=== PATIENT | female | born 1950 | race African-American/Black ===

== ENCOUNTER 2018-12-27 11:25 | Inpatient (IN) ==
[2018-12-27] MEDS ORDERED: APRESOLINE IV ONE (12:02)
[2018-12-27 12:12] LABS: BASO# 0.01 X1000 (0.0-0.2); BASO% 0.3 % (0.0-0.8); EOS# 0.08 X1000 (0.0-0.7); EOS% 2.2 % (0.0-10.0); HEMOGLOBIN 13.2 g/dL (12.0-16.0); IMM GRAN# 0.01 X1000 (0.0-0.04); IMM GRAN% 0.3 % (0.0-0.5); LYMPH# 1.77 X1000 (1.2-3.4); LYMPH% 48.4 % (20.5-51.1); MCH 28.1 PG (27-31); MCHC 33.8 g/dL (33-37); MONO# 0.23 X1000 (0.11-0.59); MONO% 6.3 % (1.7-9.3); MPV 11.2 FL (7.4-10.4); NEUT# 1.56 X1000 (1.4-6.5); NEUT% 42.5 % (42.2-75.2); PLT 239 X1000 (130-400); RDW 13.3 % (11.5-14.5); WBC 3.66 X1000 (4.8-10.8)
[2018-12-27 12:46] LABS: BILIRUBIN URINE NEGATIVE (NEGATIVE); BLOOD URINE NEGATIVE (NEGATIVE); CLARITY CLEAR (CLEAR); COLOR YELLOW; GLUCOSE URINE NEGATIVE (NEGATIVE); KETONE URINE NEGATIVE (NEGATIVE); LEUKOCYTES URINE TRACE (NEGATIVE); NITRITE URINE POSITIVE (NEGATIVE); PROTEIN URINE 1+(30 mg/dL) mg/dL (NEGATIVE); SP GRAVITY URINE 1.015; UROBILINOGEN URINE NORMAL
[2018-12-27 12:50] LABS: URINE CAST NONE SEEN /LPF; URINE CRYSTAL NONE SEEN /HPF; URINE EPITHELIAL CELLS <10 /HPF (<10); URINE SOURCE CLEAN CATCH; URINE YEAST NONE SEEN /HPF
[2018-12-27 12:51] LABS: URINE BACTERIA 1+ /HFP; URINE RBC <10 /HPF (<10); URINE WBC <10 /HPF (<10)
--- NOTE | 2018-12-27 13:09 | Diag Imaging Result Doc PS360 ---
EXAM: CT HEAD W/O CONTRAST 12/27/2018 HISTORY: headache, possible CVA TECHNIQUE: This exam was performed using automated exposure control, adjustment of mA or kV according to patient size, and/or use of iterative reconstruction technique. COMMENT: There is no evidence of mass effect, bleed, or abnormal extra-axial fluid collection. Compared to 09/25/2017 the appearance the brain has not changed significantly. The visualized paranasal sinuses are clear. The calvarium is intact. IMPRESSION: No evidence of acute intracranial disease. Electronically signed by Toribio Cook 12/27/2018 1:06 PM
[2018-12-27] MEDS ORDERED: ZOFRAN IV ONE (13:17)
--- NOTE | 2018-12-27 13:31 | EKG Report ---
Test Performed on : 12/27/2018 1:27:40 PM Test Reason : htn Blood Pressure : / mmHG Vent. Rate : 057 BPM Atrial Rate : 057 BPM P-R Int : 148 ms QRS Dur : 084 ms QT Int : 416 ms P-R-T Axes : 041 -09 005 degrees QTc Int : 404 ms Sinus bradycardia. Voltage criteria for left ventricular hypertrophy Inferior infarct , age undetermined Abnormal ECG When compared with ECG of 26-JUL-2018 08:58, Inferior infarct is now present T wave inversion now evident in Inferior leads Unconfirmed Result
[2018-12-27 13:34] LABS: ALBUMIN 4.1 g/dL (3.5-5.0); CALCIUM 8.9 mg/dL (8.8-10.2); POTASSIUM 4.1 mmol/L (3.5-5.1); TOTAL BILIRUBIN 0.3 mg/dL (0.20-1.00); TOTAL PROTEIN 7.4 g/dL (6.3-8.3)
[2018-12-27] MEDS ORDERED: ROCEPHIN 1 GM in NS 50 ML IV ONE (14:07)
--- NOTE | 2018-12-27 14:30 | PROVIDER DOCUMENTATION ---
This chart was entered by Magdalena Ornelas Scribe, acting as scribe for Zachery Abel MD. HPI-Headache - General Chief Complaint: Headache Stated Complaint: headache Time Seen by Provider: 12/27/18 11:52 Allergies/Adverse Reactions: Patient Allergies Allergy/AdvReac Type Severity Reaction Status Date / Time No Known Allergies Allergy Verified 12/27/18 11:39 Home Medications: Home Medication List Medication Instructions Recorded Confirmed Last Taken Type Hydrochlorothiazide 25 mg PO DAILY #7 tablet 01/15/14 07/26/18 Unknown Rx Aspirin 1 cap PO HS 06/29/18 07/26/18 06/28/18 21:00 History Losartan [Cozaar] 100 mg PO HS 06/29/18 07/26/18 06/28/18 21:00 History Metformin [Glucophage] 500 mg PO BID 06/29/18 07/26/18 Unknown History Omeprazole 40 mg PO DAILY 06/29/18 07/26/18 Unknown History Clopidogrel [Plavix] 75 mg PO DAILY tablet 07/01/18 07/26/18 Unknown Rx Cholecalciferol (Vitamin D3) 1,000 unit PO ONCE 07/26/18 07/26/18 Unknown History [Vitamin D3] Sennosides/Docusate Sodium [Senna 1 each PO ONCE 07/26/18 07/26/18 Unknown His tory Laxative Tablet] Azithromycin [Zithromax] 250 mg PO DAILY #5 tab 07/28/18 Unknown Rx Topiramate [Trokendi Xr] 25 mg PO DAILY #30 cap.er.24h 07/28/18 Unknown Rx - History of Present Illness-Headache Nature of Presenting Problem: 68 yof presents to ED by EMS c/o sudden onset headache on right side, slurred speech, sweatiness, nausea, 'funny feeling' all over and 'thickness' in right jaw that started while at work today. Pt also reports weakness in left leg and right arm as well as pins and needles feeling in fingers, bilaterally, that c omes and goes. Pt has hx of TIA, HTN, hyperlipidemia and thyroid disease. Quality of Pain: reports: none Severity: reports: mild Onset/Duration: reports: abrupt, just prior to arrival Timing: reports: gone now Modifying Factors: improves with: nothing Review of Systems - Adult - REVIEW OF SYSTEMS - ADULT Constitutional: reports: see HPI, fatique. denies: chills, fever Eyes: reports: no symptoms reported Ears, Nose, Mouth & Throat: reports: no symptoms reported Cardiovascular: reports: no symptoms reported Respiratory: reports: no symptoms reported Gastrointestinal: reports: see HPI, nausea. denies: abdominal pain Genitourinary: reports: no symptoms reported Musculoskeletal: reports: no symptoms reported Integumentary: reports: no symptoms reported Neurological: reports: see HPI, headache/migraines, numbness, slurred speech. denies: syncope Psychiatric: reports: no symptoms reported Endocrine: reports: no symptoms reported Hematologic/Lymphatic: reports: no symptoms reported Allergic/Immunologic: reports: no symptoms reported All Other Systems: Reviewed and Negative Past History - Adult - PAST MEDICAL HISTORY-ADULT Review of Records: reports: Nursing Assessment Review, Medications Reviewed, Social history reviewed & non-contributory. Major Childhood Illnesses: reports: denies history Cardiovascular: reports: HTN, hyperlipidemia Respiratory: reports: denies history Gastrointestinal: reports: denies history Obstetrical/Gynecological: reports: denies history Genitourinary: reports: denies history Musculoskeletal: reports: denies history Neurological: reports: denies history Endocrine/Immune: reports: Diabetes, thyroid disorder Other Conditions: reports: denies history - PRIOR SURGERIES/PROCEDURES Surgical/Procedure History: reports: hysterectomy, other (thyroidectomy) - IMMUNIZATION STATUS Childhood Immunizations: See Nurse Assessment Flu Vaccine: See Nurse Assessment - FAMILY HISTORY Family History: reviewed, not pertinent - SOCIAL HISTORY Smoking: denies Physical Exam- Neurological - Physical Exam-Neuro Initial Vital Signs Reviewed: Yes General Appearance: appears well, alert, no apparent distress. negative: combative Eye Exam: bilateral eye: normal inspection, PERRL HENMT: moist mucous membranes, normal ENT inspection. negative: angioedema Head Injury: no evidence of injury. negative: active bleeding, Mandel's Sign, contusions Neck: non-tender, full range of motion, supple, normal inspection. negative: Brudzinski's sign, carotid bruit Respiratory: chest non-tender, lungs clear, normal breath sounds, no pleuratic chest pain, no respiratory distress, no accessory muscle use. negative: crackles, rales, rhonchi Cardiovascular: normal peripheral pulses, regular rate, rhythm, no edema, no gallop, no JVD, no murmur. negative: bradycardia, tachycardia Abdominal Exam: normal bowel sounds, non tender, soft, no organomegaly. negative: rigid, rebound, tenderness Lymphatic: no adenopathy. negative: striations Extremity: normal range of motion, normal inspection. 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 negative: facial droop, facial weakness Coordination/Gait: normal finger to nose, normal gait Motor/Sensory: no motor deficit Neurologic: train crew member II-XII nml as tested, grossly normal, no motor/sensory deficits. negative: facial droop, focal weakness Integumentary: normal color, normal turgor, warm/dry. negative: diaphoresis, jaundice Psych/Mental Status: normal mood/affect, normal thought content, normal thought process, oriented x 3. negative: anxious Progress - PLAN OF CARE/RESULTS Progress/Plan/Lab Results: Vital Signs - 8 hr 12/27/18 11:29 12/27/18 13:15 Temperature 97.7 F Pulse Rate 59 L 57 L Respiratory Rate 13 22 Blood Pressure 220/103 180/76 O2 Sat by Pulse Oximetry 99 100 Laboratory Results - last 24 hr 12/27/18 12/27/18 12/27/18 11:40 11:40 12:15 WBC 3.66 L RBC 4.70 Hgb 13.2 Hct 39.0 MCV 83.0 MCH 28.1 MCHC 33.8 RDW Std Deviation 13.3 Plt Count 239 MPV 11.2 H Immature Gran % (Auto) 0.3 Neut % (Auto) 42.5 Lymph % (Auto) 48.4 Bond % (Auto) 6.3 Eos % (Auto) 2.2 Baso % (Auto) 0.3 Immature Gran # (Auto) 0.01 Neut # (Auto) 1.56 Lymph # (Auto) 1.77 Bond # (Auto) 0.23 Eos # (Auto) 0.08 Baso # (Auto) 0.01 Sodium Potassium Chloride Carbon Dioxide Anion Gap BUN Creatinine Estimated GFR/1.73 m2 BUN/Creatinine Ratio Glucose Calculated Osmolality Calcium Total Bilirubin AST ALT Alkaline Phosphatase Troponin T < 0.010 [id number]-[id number] Pept Total Protein Albumin Globulin Albumin/Globulin Ratio Urine Source CLEAN CATCH Urine Color YELLOW Urine Clarity CLEAR Urine pH 6.0 Ur Specific [place] 1.015 Urine Protein 1+(30 mg/dL) A Urine Ketones NEGATIVE Urine Blood NEGATIVE Urine Nitrite POSITIVE A Urine Bilirubin NEGATIVE Urine Urobilinogen NORMAL Urine Microscopic RBC <10 Urine WBC TRACE A Urine Microscopic WBC <10 Ur Epithelial Cells <10 Urine Crystals NONE SEEN Urine Bacteria 1+ Urine Casts NONE SEEN Urine Yeast NONE SEEN Urine Glucose NEGATIVE 12/27/18 12/27/18 12:30 12:30 WBC RBC Hgb Hct MCV MCH MCHC RDW Std Deviation Plt Count MPV Immature Gran % (Auto) Neut % (Auto) Lymph % (Auto) Bond % (Auto) Eos % (Auto) Baso % (Auto) Immature Gran # (Auto) Neut # (Auto) Lymph # (Auto) Bond # (Auto) Eos # (Auto) Baso # (Auto) Sodium 141 Potassium 4.1 Chloride 105 Carbon Dioxide 22 L Anion Gap 15 BUN 18 Creatinine 1.0 H Estimated GFR/1.73 m2 55 BUN/Creatinine Ratio 18 Glucose 88 Calculated Osmolality 283 Calcium 8.9 Total Bilirubin 0.30 AST 35 H ALT 38 H Alkaline Phosphatase 84 Troponin T Uwy-O-Righvjswnil Pept 255 Total Protein 7.4 Albumin 4.1 Globulin 3.0 Albumin/Globulin Ratio 1.0 Urine Source Urine Color Urine Clarity Urine pH Ur Specific [place] Urine Protein Urine Ketones Urine Blood Urine Nitrite Urine Bilirubin Urine Urobilinogen Urine Microscopic RBC Urine WBC Urine Microscopic WBC Ur Epithelial Cells Urine Crystals Urine Bacteria Urine Casts Urine Yeast Urine Glucose Orders Category Date Time Status Cardiac Monitoring DIRECTED Care 12/27/18 11:39 Active Finger Stick Blood Sugar (ED) DIRECTED Care 12/27/18 11:42 Active Saline Loc NOW Care 12/27/18 11:[address] HEAD W/O CONTRAST [CT] Stat Exams 12/27/18 11:53 Completed CBC WITH ELECTRONIC DIFF [HEME] Stat Lab 12/27/18 11:40 Completed COMPREHENSIVE METABOLIC PANEL [CHEM] Stat Lab 12/27/18 12:30 Completed PRO B-NATRIURETIC PEPTIDE Stat Lab 12/27/18 12:30 Completed TROPONIN T Stat Lab 12/27/18 11:[address] W/POSS RFLX CULT [URINALYSIS] Stat Lab 12/27/18 12:15 Completed URINE CULTURE [RM] Routine Lab 12/27/18 12:50 Ordered CefTRIAXONE [Rocephin] 1 gm Med 12/27/18 14:07 Active 0.9% Sodium Chloride Inj [Ns] 50 ml IV NOW Hydralazine [Apresoline] Med 12/27/18 12:02 Discontinued 10 mg IV NOW ONE Ondansetron [Zofran] Med 12/27/18 13:17 Discontinued 4 mg IV NOW ONE EKG [EKG] Stat Ther 12/27/18 11:53 Draft At recheck pt noted that her symptoms were resolved and has already taken an aspirin before coming to the ER. Result Diagrams: 12/27/18 11:40 12/27/18 12:30 - REASSESSMENT Reassessment #1 Time Reassessed: 12:48 Status: improving (pt states she is fine now, symptoms resolved) - EKG 1 Time of EKG reading by physician:: 13:27 EKG Read and Signed by:: Zachery Abel EKG Interpretation (*Must complete 3 of following elements*): Abnormal (inferior infarct, age undetermined) Rate: 57 Rhythm: sinus bradycardia QRS: LVH ST Wave: normal - CT/MRI 1 CT Study: Head Impression: See EMR Report (IMPRESSION: No evidence of acute intracranial disease. Electronically signed by Toribio Cook 12/27/2018 1:06 PM) - CONSULTS/PCP/HOSPITALIST Notification #1 *Consult/PCP/Hospitalist*: Zahida for Dr Smith Time Discussed: 14:28 Consult Disposition: Will see in ED, Admit Departure - Departure Date of Disposition Decision: 12/27/18 Time of Disposition Decision: 14:28 DIAGNOSIS: TIA (transient ischemic attack), HTN (hypertension) Disposition: ADMITTED INPATIENT 09 Certified Medical Emergency: Emergent Condition: Fair Referrals and Follow-Ups: None,PCP [Primary Care Provider] - - Critical Care Note This patient required my direct & personal management of CC.: No Attestation - Physician/ MARAL Attestation Patient care was provided by Advanced Practice Provider:: No The physician spent face to face time with patient:: Yes Advanced Practice Provider documentation review:: Supervising physician onsite and consulted in the evaluation and care of this patient. The physician did have a face to face encounter with the patient. This chart was documented by the indicated scribe, (Magdalena Ornelas Scribe) and accurately reflects the services I performed and decisions made by me, Zachery Abel MD, as attested by the provider's signature.
--- NOTE | 2018-12-27 15:53 | HISTORY AND PHYSICAL ---
CHIEF COMPLAINT: Headache, slurred speech. HISTORY OF PRESENT ILLNESS: This is a 68-year-old female who presents to the emergency room complaining of a sudden onset of a headache followed by slurred speech, palpitations, diaphoresis, and nausea, shortly followed by weakness in her left leg and right arm. At the time of my exam her symptoms have resolved. The patient states that she was sitting at her desk working, felt a fluttering in her chest, had a headache that she described behind her right eye going down into her right cheek. She began to sweat, be nauseated, and felt funny all over. She stated that coworkers came and said her speech "went in and out, being slurred and normal." She had fleeting weakness in her left leg and right arm, although she has had no difficulty walking. She had a CVA in June of 2018, experiencing left-sided weakness, although that did resolve while at rehab. PAST MEDICAL HISTORY: 1. Migraine headaches. 2. Hypertension. 3. Diabetes mellitus. 4. Hyperlipidemia. 5. Hypothyroid. 6. CVA in June 2018. PAST SURGICAL HISTORY: INCOMPLETE REPORT--DICTATIONS ENDS HERE. Dictated by CLIF Llamas for Stalin Smith MD cc: CLIF Llamas MD
--- NOTE | 2018-12-27 18:12 | HISTORY AND PHYSICAL ---
CHIEF COMPLAINT: Headache and slurred speech. HISTORY OF PRESENT ILLNESS: This is a 68-year-old female who presented to the emergency room complaining of sudden onset of a headache, followed by palpitations, diaphoresis, weakness, nausea, then slurred speech. She stated that she was sitting at her desk working when symptoms began. Co-worker stated that "My speech went in and out, going from slurred to normal." She did have a fleeting weakness to her left leg and right arm, which resolved, although she stated she had no difficulty walking or holding onto objects. She does have a history of a CVA in June 2018. At that time she had left-sided weakness, although this did all resolve while she was at rehab. She also reports a recent admission at [facility] for a TIA and she does report being evaluated by Cardiology, thinking that her symptoms could be from her heart, although reportedly everything was normal. At the time of my exam symptoms have resolved. She states she is back to her normal self. PAST MEDICAL HISTORY: Migraine headaches, hypertension, diabetes mellitus, hyperlipidemia, hypothyroid, and CVA in June 2018. PAST SURGICAL HISTORY: Thyroidectomy and hysterectomy. SOCIAL HISTORY: She denies alcohol, tobacco or illicit drug use. ALLERGIES: Lipitor, which caused elevation in her LFTs. HOME MEDICATIONS: A list will be obtained by the nursing staff and once verified, will review and restart as appropriate. REVIEW OF SYSTEMS: Discussed with patient, with pertinent positives stated in the HPI. She denied any syncope, any chest pain, any vomiting, diarrhea, constipation, any black or bloody vomitus or stools, any shortness of breath, cough, fever, chills. PHYSICAL EXAMINATION: GENERAL: This is a 68-year-old female who is lying in the stretcher in the emergency room in no distress. VITAL SIGNS: Blood pressure is 171/82 with a heart rate of 62, respirations 20, temperature is 97.9 oral, with room air sats 98-100%. EYES: Pupils are equal, round, react to light. EOMs are intact. Sclerae are anicteric. HEENT: Head is normocephalic, atraumatic. Mucous membranes are moist. NECK: Supple, with trachea midline. CARDIOVASCULAR: Regular rate and rhythm. S1 and S2 appreciated. EXTREMITIES: She has no lower extremity edema. Calves are nontender bilaterally. Peripheral pulses are palpable x 4 extremities. PULMONARY: Breath sounds are clear. No increased work of breathing noted. Chest rises and falls symmetrically with respiration. GASTROINTESTINAL: Abdomen is soft, nontender, nondistended with bowel sounds in all 4 quadrants. SKIN: Warm and dry. NEUROLOGIC: She is alert oriented x 3. Forehead is spared. She has equal nasal flaring. She has no tongue or uvula deviation. She has equal shoulder shrug. She has no plantar drift. Rtnsue-oq-eegv bilateral is 3/3. National Sales Trainer are equal. LABS: WBC is 3.6, with hemoglobin 13.2, hematocrit 39 and platelets of 239,000. Sodium 141, potassium 4.1, BUN 18, creatinine 1, with a glucose of 88. Urinalysis is nitrite positive with less than 10 microscopic red blood cells and white blood cells, less than 10 epithelial cells. She does have 1+ bacteria. Urine culture is pending. CT of the head reveals no evidence of acute intracranial disease. No mass effect, bleed or abnormal extra-axial fluid collection compared to 09/25/2017. The appearance of the brain has not changed significantly. The visualized paranasal sinuses are clear. The calvarium is intact. ASSESSMENT AND PLAN: 1. Headache. This is resolved. The patient does have a history of migraine headaches. Will follow. 2. Possible TIA. Symptoms have resolved. We will continue with neuro checks. 3. Hypertension. Blood pressure was 220/103 on arrival. She was given hydralazine x 1. Pressures are now in the 160-170/70-80 range. We will continue hydralazine q.4 hours p.r.n. for systolic greater than 180. 4. Diabetes mellitus. She will be placed on pattern blood glucose with sliding scale insulin. 5. Hypothyroid. We will check a TSH. 6. The patient stated that she did have palpitations and nausea prior to this episode. She does report this with prior episodes. She will be placed on telemetry and on discharge we can arrange a monitor via Cardiology. 7. Further treatments pending hospital course. Dictated by CLIF Llamas for Stalin Smith MD cc: CLIF Llamas MD
--- NOTE | 2018-12-27 19:36 | HISTORY AND PHYSICAL ---
HISTORY AND PHYSICAL ADDENDUM: Patient seen and examined by myself. She is a 68-year-old, very pleasant female, who presented to the hospital with headache and some slurred speech. Notes that her speech is back to normal as is her headache. States that since her recent stroke, she has been having times where she is slow of thought. Denies any focalized weakness or numbness. Denies any vision change, fevers, chills, cough or congestion. PLAN: We will admit her to the hospital, treat in usual fashion. Continue to keep her on oxygen, follow her blood pressures which were much improved, and we will follow. We will consult with Neurology about further interventions if needed. cc: Stalin Smith MD
[2018-12-27] MEDS: PLAVIX PO SCH (21:50)
[2018-12-28 06:00] LABS: HEMOGLOBIN 12.1 g/dL (12.0-16.0); MCH 27.8 PG (27-31); MCHC 33.6 g/dL (33-37); MCV 82.6 FL (81-99); MPV 10.8 FL (7.4-10.4); RBC 4.36 XMIL (4.2-5.4); WBC 3.12 X1000 (4.8-10.8)
[2018-12-28 06:13] LABS: AGAP 11; ALBUMIN 3.8 g/dL (3.5-5.0); ALKALINE PHOSPHATASE 81 U/L (32-104); BUN 19 mg/dL (8-22); CALCIUM 8.7 mg/dL (8.8-10.2); CHLORIDE 104 mmol/L (98-107); CHOLESTEROL 201 mg/dL (0-200); COSMO 287; ESTIMATED GFR 55; GLUCOSE 126 mg/dL (70-104); GOT 27 U/L (10-30); GPT 35 U/L (10-36); HDL 46 mg/dL (45-65); LDL 109 mg/dL; POTASSIUM 3.8 mmol/L (3.5-5.1); SODIUM 142 mmol/L (136-145); TCO2 27 mmol/L (25-35); TRIGLYCERIDES 231 mg/dL (35-135); VLDL 46 mg/dL
[2018-12-28] MEDS: PRILOSEC PO SCH (07:27)
--- NOTE | 2018-12-28 09:04 | CONSULTATION ---
DATE OF CONSULTATION: 12/28/2018 Ms. Woods is 68 years old and there is a question of stroke. 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 She did not initially report right-sided weakness to me but later in the interview, told me she thought her right limbs might have been weak temporarily. She could not describe this more precisely. She believes her speech was slurred. She believes co-worker commented on face being crooked. She did not notice vision disturbance. There was no trouble with chewing. She had no altered awareness or loss of memory. She presented to the hospital, was evaluated and admitted. She feels a lot better today. She reports the right cheek continues to feel a little bit numb but other symptoms have resolved. Systolic blood pressure was recorded 220 on presentation. Blood pressures have come down since then. She told me that she has been taking her blood pressure medicine correctly, not missing doses. She thinks she switched from losartan to telmisartan a few months ago. She said she checks blood pressures at home and finds systolics range between 120s and 180s on the current regimen. She reports diagnosis of "stroke" made in June last year, 6 months ago, when she had sudden onset of left cheek numbness, weakness in the left arm and leg, gait difficulty, slurred speech. She reports those symptoms resolved over a few weeks and that she was eventually back to normal baseline except left cheek continued to be numb. She spent some time in rehab then. She reports similar left-sided numbness occurred again a few months ago and resolved overnight. Workup a few months ago was in [facility] and I do not have those records. Workup 6 months ago was here and computer records show unremarkable CT and MRI scans, no evidence of acute right hemisphere infarction or of other acute lesion. Carotid ultrasound was unremarkable. She reports switching from aspirin to clopidogrel after the stroke episode 6 months ago. Lab work here shows blood sugar is mildly elevated. There is nothing remarkable on the chemistry profile otherwise. Ms. Woods is awake, alert, attentive. She seems appropriate now. Speech is not dysarthric. Language function is intact on bedside testing. Recent and remote memory are good. She is oriented to all parameters. Head and neck are unremarkable. Visual louis are full tested by confrontational finger counting. Extraocular movements are full. Facial motility is symmetric. She reports diminished light touch appreciation over the left lower face compared to the right, (numb on side affected by earlier episode more than side affected by current episode) somewhat inconsistent on repeated testing. Gag is intact. Tongue is midline. Hearing is good. Shoulder shrug is equal. She has good power in the arms and legs. Left reading assistant seemed a little bit less firm than the right but I could not find any definite loss of motor power. Tone is symmetric in the limbs. She did well on [id number] testing bilaterally. She reports diminished sensation over the left limbs compared to the right. In addition, there is a very slight stocking pattern of sensory loss extending to the ankle bilaterally. Proprioception is good at the great toe MTP joints bilaterally. I did not test her gait. IMPRESSION: 1. Recent and current subjective right cheek numbness without objective findings. She reports pressure across the right side of her head yesterday and she presented with extreme systolic hypertension. 2. Her history of episode 6 months ago was very suggestive of ischemic stroke but there was never documentation of infarction on imaging studies here. Presentation 2 months ago also sounds like acute ischemic neurologic event with resolution overnight, timeframe of deficit much longer than typical for a transient ischemic attack and, again, apparently negative imaging. 3. She has risk factors for cerebrovascular ischemic problems including diabetes mellitus, hypertension, age, possible previous events. I believe that she has had dyslipidemia and took statin briefly and did not tolerate that. I do not have details of that management. She does not smoke cigarettes. I do not have a definite explanation for all of her reports. We could blame at least some of her symptoms on transient hypertension. She could have had a reversible encephalopathy syndrome associated with marked BP elevation but we would typically have seen evidence of that on the initial imaging studies. We need to get records from [facility] to be sure what was noted there. For now, I would continue treating blood pressure as you are doing, continue clopidogrel, consider adding aspirin for a short-term dual antiplatelet therapy, consider trying a statin again, continue treating blood sugar aggressively. Although all previous imaging studies available for my review have been negative, I think it would be reasonable to get another brain MRI at this time. Thanks for asking neurology to see Ms. Woods. She seems clinically stable now and if she is otherwise ready for discharge, she might complete her workup as an outpatient. I will be glad to follow up with her in the office to check on her clinical course, outpatient MRI, review [facility] records. cc: MD KIRSTIN Pacheco III
[2018-12-28] MEDS: HYDROCHLOROTHIAZIDE PO SCH (09:20)
[2018-12-28] MEDS: VITAMIN D PO SCH (09:20)
[2018-12-28] MEDS: PERICOLACE PO SCH (09:20)
[2018-12-28] MEDS: PLAVIX PO SCH (21:33)
--- NOTE | 2018-12-29 00:41 | PROGRESS NOTE ---
DATE: 12/28/2018 SUBJECTIVE: Patient notes this morning she is not feeling as well as she did last night. States she is feeling a little lightheaded and dizzy-headed. States this is different than her typical vertigo. Denies any chest pain, palpitations. Denies any dysuria, frequency, urgency, constipation, melena, hematochezia. ASSESSMENT: 1. Headache. Currently has resolved. Dr. Young is seeing in consultation and believes that she needs to be on aspirin and Plavix. 2. High cholesterol. Again, discussed with patient to consider taking Lipitor. If this does not work, then should switch to Repatha injections. PLAN: Hopefully, the patient's symptoms will resolve and she will start eating better, we can discharge her home. We will get physical therapy if needed. cc: Stalin Smith MD
[2018-12-29] MEDS: PRILOSEC PO SCH (07:02)
[2018-12-29] MEDS: HYDROCHLOROTHIAZIDE PO SCH (08:09)
[2018-12-29] MEDS: PERICOLACE PO SCH (08:09)
[2018-12-29] MEDS: VITAMIN D PO SCH (08:09)
[2018-12-29] MEDS ORDERED: ASPIRIN EC PO SCH (10:00)
[2018-12-29 12:22] VITALS: BP 139/73
[2018-12-29] MEDS ORDERED: ATIVAN IV ONE (14:46)
[2018-12-29] MEDS ORDERED: LIPITOR PO SCH ×2 (21:00)
--- NOTE | 2018-12-30 05:06 | DISCHARGE SUMMARY ---
ADMISSION DATE: 12/28/2018 DISCHARGE DATE: 12/29/2018 DISCHARGE DIAGNOSES: 1. Transient ischemic attack. 2. Headache. 3. History of cerebrovascular accident. 4. Hypertension. 5. Diabetes mellitus. 6. Hypothyroid. CONSULTATIONS: Dr. Courtney Young. DIAGNOSTICS: CT of the head revealed no evidence of acute intracranial disease. No evidence of mass effect, bleed, or abnormal extraaxial fluid collection compared to 09/25/2017, the appearance of brain has not changed significantly. The visualized paranasal sinuses are clear. HOSPITAL COURSE: Ms Woods presented to the emergency room after having a headache and numbness in her cheek. She did have intermittent episodes of her speech being slurred, according to her coworkers. Shortly after arriving to the emergency room, her symptoms resolved and thankfully have not returned. She was evaluated by Dr. Young, who has recommended the patient be placed on aspirin and Lipitor, along with her Plavix, have an outpatient MRI of the brain, and follow up with him, which we will arrange. The patient stated that she discontinued her statin in the past as she was intolerant. We have a strongly encouraged her to try Lipitor at a lower dosage and if she is intolerant to this dose, then speak to her primary care physician regarding Repatha injections, which she is in agreement to. Ms Woods did state that she was recently in [facility] having a TIA and was evaluated by Neurologic and Cardiology at that time, and as there was a question her symptoms could be coming from her heart, although she stated that everything was normal on discharge. She did state that cardiology was consulted because she felt "a fluttering in my chest" prior to her episode. I have discussed that it would be prudent for her to discuss this with her primary care physician if recurrence of these symptoms occur. DISCHARGE VITAL SIGNS: Blood pressure is 139/73 with a heart rate of 71, respirations 20, temperature is 97.8 degrees oral, with room air saturation 100%. DISCHARGE PHYSICAL EXAMINATION: Cardiovascular: Regular rate and rhythm. S1 and S2 appreciated. She has no lower extremity edema. Calves are nontender bilateral with peripheral pulses x4 extremities. Pulmonary: Breath sounds are clear with no increased work of breathing noted. Chest rises and falls symmetrically with respiration. Chest wall is nontender to palpation. Gastrointestinal: Abdomen is soft, nontender, nondistended with bowel sounds in all 4 quadrants. Neurologic: She is alert oriented x3. DISCHARGE MEDICATIONS: 1. Metformin 500 mg p.o. b.i.d. 2. Omeprazole 40 mg p.o. daily. 3. Plavix 75 mg p.o. at bedtime. 4. Telmisartan 80 mg p.o. at bedtime. 5. Vitamin D3 one cap daily. 6. Lipitor 10 mg p.o. at bedtime. 7. Enteric-coated aspirin 325 mg daily. 8. Hydrochlorothiazide 25 mg p.o. daily. FOLLOW-UP: 1. Dr. Courtney Young, appointment will be scheduled by the nursing staff prior to the patient's discharge. 2. She will need an MRI of the brain without contrast prior to her appointment with Dr. Young. This will be arranged via the nursing staff prior to discharge. DISCHARGE INSTRUCTIONS: She has been instructed to return to the emergency room for any syncope, dizziness, chest pain, palpitations, any episodes of slurred speech, paresthesias, for any facial asymmetry, or for any questions or concerns that she may have. She is being discharged home in stable condition with family members. TIME SPENT: This is a greater than 30 minute discharge. Dictated by CLIF Llamas for Stalin Smith MD cc: CLIF Llamas MD
--- NOTE | 2018-12-30 17:38 | DISCHARGE SUMMARY ---
ADMISSION DATE: 12/28/2018 DISCHARGE DATE: 12/29/2018 HISTORY/HOSPITAL COURSE: Patient overall notes that she is feeling much better. She has had an uneventful hospital course. Her symptoms have improved. All of her TIA symptoms have resolved. Her headache has resolved. Blood pressures are much improved at 113 systolic, which is likely the cause of her improved neurologic status. She will be discharged home on aspirin and Plavix. She notes that she has not tolerated statins in the past. Discussed with her that she needs to follow up with primary and consider Repatha. Thankfully, her symptoms have resolved, and therefore, she will be discharged home. She will have an outpatient MRI, follow up with Neurology. cc: Stalin Smith MD
== END 2018-12-29 15:45 | disposition home or self-care (01) | DRG 69 ==
LOC: P.MEDSURG 11:25 → P.ED 11:25
PROVIDERS: ATTEND Family Medicine
CPT/HCPCS: 70450; 80053; 80061; 81001; 82948; 83880; 84443; 84484; 85025; 85027; 87088; 93005; A9270; J0360; J0696; J2405; XXXXX